=== PATIENT | male | born 1950 | race African-American/Black ===

== ENCOUNTER 2016-11-26 17:43 | Emergency (ER) | payer OTHER, MEDICARE ==
[2016-11-26 17:47] VITALS: BP 134/98; PULSE 64; TEMP 98.5; BMI 28.9
--- NOTE | 2016-11-26 18:47 | PDOC ---
History of Present Illness - General Chief Complaint: Eye Problem Stated Complaint: EYE INJURY Time Seen by Provider: 11/26/16 18:10 History Source: Patient Exam Limitations: No Limitations - History of Present Illness Initial Comments: 11/26/16 18:40 This is a 66yo man with PMH left corneal transplant who presents today with spontaneous redness to left sclera. He denies trauma, headaches, blurry vision, fevers or chills. He denies contact with anyone with similar symptoms. He denies FB sensation to eye. Pain- none Past History - Past Medical History Allergies/Adverse Reactions: Allergies Allergy/AdvReac Type Severity Reaction Status Date / Time No Known Allergies Allergy Verified 11/26/16 17:47 Home Medications: Ambulatory Orders Aspirin 81 mg PO DAILY 09/25/12 Atorvastatin Ca [Lipitor] 10 mg PO HS 09/25/12 Hydrochlorothiazide [Hctz -] 12.5 mg PO DAILY 09/25/12 Brimonidine Tartrate/Timolol [Combigan Eye Drops] 10 ml OP ASDIR 11/26/16 Lisinopril [Prinivil -] 40 mg PO DAILY 11/26/16 Verapamil HCl [Verapamil ER] 240 mg PO DAILY 11/26/16 HTN: Yes Hypercholesterolemia: Yes - Surgical History Appendectomy: Yes GI Surgery: Yes (hernia repair) - Psycho/Social/Smoking Cessation Hx Anxiety: No Suicidal Ideation: No Smoking Status: No Smoking History: Never smoked Number of Cigarettes Smoked Daily: 0 Information on smoking cessation initiated: No Hx Alcohol Use: No Drug/Substance Use Hx: No Substance Use Type: None Review of Systems - Review of Systems Able to Perform ROS?: Yes Is the patient limited Mozambican proficient: No Constitutional: No: Symptoms Reported HEENTM: Yes: See HPI Respiratory: No: Symptoms reported Cardiac (ROS): No: Symptoms Reported ABD/GI: No: Symptoms Reported : No: Symptoms Reported Musculoskeletal: No: Symptoms Reported Integumentary: No: Symptoms Reported Neurological: No: Symptoms reported *Physical Exam - Vital Signs Last Vital Signs Temp Pulse Resp BP Pulse Ox 98.5 F 64 17 134/98 98 11/26/16 17:45 11/26/16 17:45 11/26/16 17:45 11/26/16 17:45 11/26/16 17:45 - Physical Exam General Appearance: Yes: Appropriately Dressed. No: Apparent Distress HEENT: positive: EOMI, ASIA, Other (painless blood noted to the sclera). negative: Photophobia Neck: positive: Trachea midline, Supple. negative: Tender Respiratory/Chest: positive: Lungs Clear, Normal Breath Sounds. negative: Chest Tender, Respiratory Distress, Accessory Muscle Use Cardiovascular: positive: Regular Rhythm, Regular Rate, S1, S2. negative: Edema , JVD, Murmur Gastrointestinal/Abdominal: positive: Normal Bowel Sounds, Soft. negative: Tender, Organomegaly Musculoskeletal: positive: Normal Inspection. 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 He denies trauma, headaches, blurry vision, fevers or chills. He denies contact with anyone with similar symptoms. He denies FB sensation to eye. He wears a soft contact lens in his left eye and a hard contact lens in his right eye. No FB visualized. Fluorescein exam revealed no uptake. No FB visualized after fluorescein. No entrapment present. P: Subconjunctival hemorrhage - discharge *DC/Admit/Observation/Transfer Diagnosis at time of Disposition: Subconjunctival bleed Qualifiers: Laterality: left Qualified Code(s): H11.32 - Conjunctival hemorrhage, left eye - Discharge Dispostion Disposition: HOME Condition at time of disposition: Stable Admit: No - Referrals Referrals: Sukumar Hood MD [Primary Care Provider] - - Patient Instructions Additional Instructions: The blood is typically resorbed over one to two weeks, depending on the amount of blood. The amount of blood may seem to increase on the second day, but this typically represents redistribution and should not cause concern. Return to ER for any persistent or worsening symptoms including pain, visual changes or any other concern. Thank you for choosing us to provide your emergent medical needs. - Post Discharge Activity Work/School Note: Back to Work
== END 2016-11-26 18:54 | disposition home or self-care (01) ==
LOC: JERFT 17:43
DX: H11.32 Conjunctival hemorrhage, left eye (principal); Z94.7 Corneal transplant status; I10 Essential (primary) hypertension; E78.00 Pure hypercholesterolemia, unspecified
CPT/HCPCS: 99281-25

== ENCOUNTER 2016-12-09 09:34 | Emergency (ER) | payer OTHER, MEDICARE ==
[2016-12-09 09:44] VITALS: BP 111/79; PULSE 50; TEMP 98.3; BMI 28.9
--- NOTE | 2016-12-09 11:18 | PDOC ---
History of Present Illness - General Chief Complaint: Pain, Acute Stated Complaint: LT TOE PAIN Time Seen by Provider: 12/09/16 11:01 History Source: Patient Exam Limitations: No Limitations - History of Present Illness Initial Comments: 12/09/16 11:13 66 yr male with left second toe injury yesterday, pt states he bent it backwards playing with his grandson. 12/09/16 14:09 Occurred: reports: other (1 days ago ) Past History - Past Medical History Allergies/Adverse Reactions: Allergies Allergy/AdvReac Type Severity Reaction Status Date / Time No Known Allergies Allergy Verified 12/09/16 09:40 Home Medications: Ambulatory Orders Aspirin 81 mg PO DAILY 09/25/12 Atorvastatin Ca [Lipitor] 10 mg PO HS 09/25/12 Hydrochlorothiazide [Hctz -] 12.5 mg PO DAILY 09/25/12 Brimonidine Tartrate/Timolol [Combigan Eye Drops] 10 ml OP ASDIR 11/26/16 Lisinopril [Prinivil -] 40 mg PO DAILY 11/26/16 Verapamil HCl [Verapamil ER] 240 mg PO DAILY 11/26/16 HTN: Yes Hypercholesterolemia: Yes - Surgical History Appendectomy: Yes GI Surgery: Yes (ABDOMINAL hernia repair) - Immunization History Immunization Up to Date: Yes - Psycho/Social/Smoking Cessation Hx Anxiety: No Suicidal Ideation: No Smoking Status: No Smoking History: Never smoked Have you smoked in the past 12 months: No Number of Cigarettes Smoked Daily: 0 Information on smoking cessation initiated: No Hx Alcohol Use: No Drug/Substance Use Hx: No Substance Use Type: Alcohol *Physical Exam - Vital Signs Last Vital Signs Temp Pulse Resp BP Pulse Ox 98.3 F 50 L 15 111/79 99 12/09/16 09:40 12/09/16 09:40 12/09/16 09:40 12/09/16 09:40 12/09/16 09:40 - Physical Exam General Appearance: Yes: Nourished, Appropriately Dressed HEENT: positive: EOMI, ASIA Neck: negative: Tender Respiratory/Chest: positive: Lungs Clear, Normal Breath Sounds. 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 12/09/16 14:11 refer to podiatry as discussed pt agrees with plan all questions asked and answered *DC/Admit/Observation/Transfer Diagnosis at time of Disposition: Strain of toe of left foot Qualifiers: Encounter type: initial encounter Qualified Code(s): S96.912A - Strain of unspecified muscle and tendon at ankle and foot level, left foot, initial encounter - Discharge Dispostion Disposition: HOME Condition at time of disposition: Good - Referrals Referrals: Sukumar Hood MD [Primary Care Provider] - Jose F Odell MD [Staff Physician] - - Patient Instructions Additional Instructions: follow with the medication specialist for follow up if symptoms worsen or persist take motrin for pain as needed (advil) keep celestina taped for one week - Post Discharge Activity Work/School Note: Back to Work
== END 2016-12-09 11:32 | disposition home or self-care (01) ==
LOC: JERFT 09:34
DX: S93.515A Sprain of interphalangeal joint of left lesser toe(s), initial encounter (principal); X50.1XXA Overexertion from prolonged static or awkward postures, initial encounter; Y93.89 Activity, other specified; Y92.038 Other place in apartment as the place of occurrence of the external cause; Y99.8 Other external cause status; I10 Essential (primary) hypertension; E78.00 Pure hypercholesterolemia, unspecified
CPT/HCPCS: 99281-25

== ENCOUNTER 2017-01-17 15:31 | Emergency (ER) | payer OTHER, MEDICARE ==
[2017-01-17 15:37] VITALS: BMI 27.3
[2017-01-17] MEDS ORDERED: FLUORESCEIN NA 1 EA STRIP ONE (17:39)
--- NOTE | 2017-01-17 18:44 | PDOC ---
*Physical Exam - Vital Signs Last Vital Signs Temp Pulse Resp BP Pulse Ox 98.5 F 57 L 16 140/76 99 01/17/17 15:35 01/17/17 15:35 01/17/17 15:35 01/17/17 15:35 01/17/17 15:35 <Oneil Salcedo - Last Filed: 01/17/17 18:39> - Vital Signs Last Vital Signs Temp Pulse Resp BP Pulse Ox 98.5 F 57 L 16 140/76 99 01/17/17 15:35 01/17/17 15:35 01/17/17 15:35 01/17/17 15:35 01/17/17 15:35 <Sandy Henderson - Last Filed: 01/19/17 01:41> ED Treatment Course - RADIOLOGY Radiology Studies Ordered: Category Date Time Status ORBIT CT W/WO CONTRAST [CT] Stat CT Scan 01/17/17 18:15 Ordered <Oneil Salcedo - Last Filed: 01/17/17 18:39> - LABORATORY CBC & Chemistry Diagram: 01/17/17 20:37 01/17/17 20:37 - Medications Given in the ED: ED Medications Discontinued Medications Generic Name Dose Route Start Last Admin Trade Name Freq PRN Reason Stop Dose Admin Moxifloxacin HCl 1 drop 01/17/17 18:15 01/17/17 20:36 Vigamox 0.5% Eye Drops - OS 01/17/17 18:46 1 drop Q15M FOSTER Administration <Sandy Henderson - Last Filed: 01/19/17 01:41> Medical Decision Making - Medical Decision Making 01/17/17 18:39 I have assisted in the care of the patient to the extent of making a phone call to Dr. Alvaro Aguilar's office/associate and ordering the appropriate imaging and antibiotics. 01/17/17 18:41 I have discussed the patient's care with his ophthamology team, an associate of Dr. Alvaro Aguilar at [phone]. She suggests getting an orbital CT. In the meantime, he should be getting topical abx, moxifloxacin. If there is orbital involvement, he must be admitted for IV abx. If there is no orbital involvment, she wants oral abx in addition to the topical abx and a phone call tomorrow to her office with an appointment made the same day. The patient should be instructed to call the physician tomorrow with his status (admitted vs not with antibiotics). 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
[2017-01-17] MEDS: MOXIFLOXACIN HCL 0.5% OPHTHALMIC 3 ML BOTTLE OS SCH ×3 (20:10→20:36)
[2017-01-17] MEDS ORDERED: VANCOMYCIN 1,000 MG in DEXTROSE 5%-WATER - 250 ML IVPB STA (20:33)
[2017-01-17] MEDS ORDERED: CEFTRIAXONE 2,000 MG in DEXTROSE 5%-WATER - 50 ML IVPB STA (20:34)
[2017-01-17] MEDS ORDERED: CEFTRIAXONE 100 ML ONE (20:50)
--- NOTE | 2017-01-17 20:55 | PDOC ---
History of Present Illness - General History Source: Patient Exam Limitations: No Limitations - History of Present Illness Initial Comments: 01/17/17 21:54 The patient is a 66 year old male, with a significant past medical history of L corneal transplant, HTN, HLD who presents to the emergency department with L eye pain and swelling since last night. Patient states his L eye began profusely tearing with pain. Patient reports eye pain is 5/10 in severity with associated decreased vision and photophobia. Patient denies any injury to L eye , any discharge. <Priscilla aDugherty - Last Filed: 01/17/17 23:19> <Sandy Henderson - Last Filed: 01/17/17 23:46> - General Chief Complaint: Eye Problem Stated Complaint: EYE PAIN Time Seen by Provider: 01/17/17 17:35 Past History <Priscilla Daugherty - Last Filed: 01/17/17 23:19> - Past Medical History HTN: Yes Hypercholesterolemia: Yes - Surgical History Appendectomy: Yes GI Surgery: Yes (ABDOMINAL hernia repair) - Immunization History Immunization Up to Date: Yes - Suicide/Smoking/Psychosocial Hx Smoking Status: No Smoking History: Never smoked Have you smoked in the past 12 months: No Number of Cigarettes Smoked Daily: 0 Information on smoking cessation initiated: No Hx Alcohol Use: Yes (GLASS OF WINE A DAY) Drug/Substance Use Hx: No Substance Use Type: Alcohol <Sandy Henderson - Last Filed: 01/17/17 23:46> - Past Medical History Allergies/Adverse Reactions: Allergies Allergy/AdvReac Type Severity Reaction Status Date / Time No Known Allergies Allergy Verified 01/17/17 15:37 Home Medications: Ambulatory Orders Aspirin 81 mg PO DAILY 09/25/12 Atorvastatin Ca [Lipitor] 10 mg PO HS 09/25/12 Hydrochlorothiazide [Hctz -] 12.5 mg PO DAILY 09/25/12 Brimonidine Tartrate/Timolol [Combigan Eye Drops] 10 ml OP ASDIR 11/26/16 Lisinopril [Prinivil -] 40 mg PO DAILY 11/26/16 Verapamil HCl [Verapamil ER] 240 mg PO DAILY 11/26/16 Review of Systems - Review of Systems Able to Perform ROS?: Yes Comments:: 01/17/17 21:54 CONSTITUTIONAL: Absent: fever, chills, diaphoresis, generalized weakness, malaise, loss of appetite HEENT: + L eye pain Absent: rhinorrhea, nasal congestion, throat pain, throat swelling, difficulty swallowing, mouth swelling, ear pain, , visual Changes CARDIOVASCULAR: Absent: chest pain, syncope, palpitations, irregular heart rate, lightheadedness , peripheral edema RESPIRATORY: Absent: cough, shortness of breath, dyspnea with exertion, orthopnea, wheezing, stridor, hemoptysis GASTROINTESTINAL: Absent: abdominal pain, abdominal distension, nausea, vomiting, diarrhea, constipation, melena, hematochezia GENITOURINARY: Absent: dysuria, frequency, urgency, hesitancy, hematuria, flank pain, genital pain MUSCULOSKELETAL: Absent: myalgia, arthralgia, joint swelling SKIN: Absent: rash, itching, pallor HEMATOLOGIC/IMMUNOLOGIC: Absent: easy bleeding, easy bruising, lymphadenopathy, frequent infections ENDOCRINE: Absent: unexplained weight gain, unexplained weight loss, heat intolerance, cold intolerance NEUROLOGIC: Absent: headache, focal weakness or paresthesias, dizziness, unsteady gait, seizure, mental status changes, bladder or bowel incontinence PSYCHIATRIC: Absent: anxiety, depression, suicidal or homicidal ideation, hallucinations. <Priscilla Daugherty - Last Filed: 01/17/17 23:19> *Physical Exam - Vital Signs Last Vital Signs Temp Pulse Resp BP Pulse Ox 98.5 F 57 L 16 140/76 98 01/17/17 15:35 01/17/17 15:35 01/17/17 15:35 01/17/17 15:35 01/17/17 21:07 - Physical Exam Comments: GENERAL: Well developed, well nourished. Awake and alert. No acute distress. HEENT: +Unaffected R eye. L eye: visual acuity is 20/200 in affected L eye. Injected conjunctiva. No discrete discharge on the eye. Some L eyelid swelling, No stye appreciated. Normocephalic, atraumatic. PERRLA, EOMI. Sclera are non- icteric. Moist mucous membranes. Oropharynx is clear. NECK: Supple. Full ROM. No JVD. Carotid pulses 2+ and symmetric, without bruits. No thyromegaly. No lymphadenopathy. CARDIOVASCULAR: Regular rate and rhythm. No murmurs, rubs, or gallops. Distal pulses are 2+ and symmetric. PULMONARY: No evidence of respiratory distress. Lungs clear to auscultation bilaterally. No wheezing, rales or rhonchi. ABDOMINAL: Soft. Non-tender. Non-distended. No rebound or guarding. No organomegaly. Normoactive bowel sounds. MUSCULOSKELETAL Normal range of motion at all joints. No bony deformities or tenderness. No CVA tenderness. EXTREMITIES: No cyanosis. No clubbing. No edema. No calf tenderness. SKIN: Warm and dry. Normal capillary refill. No rashes. No jaundice. NEUROLOGICAL: Alert, awake, appropriate. Cranial nerves 2-12 intact. No deficits to light touch and temperature in face, upper extremities and lower extremities. No motor deficits in the in face, upper extremities and lower extremities. Normoreflexic in the upper and lower extremities. Normal speech. Toes are down-going bilaterally. Gait is normal without ataxia. PSYCHIATRIC: Cooperative. Good eye contact. Appropriate mood and affect. <Priscilla Daugherty - Last Filed: 01/17/17 23:19> - Vital Signs Last Vital Signs Temp Pulse Resp BP Pulse Ox 98.5 F 57 L 16 140/76 99 01/17/17 15:35 01/17/17 15:35 01/17/17 15:35 01/17/17 15:35 01/17/17 15:35 <Sandy Henderson - Last Filed: 01/17/17 23:46> ED Treatment Course - LABORATORY CBC & Chemistry Diagram: 01/17/17 20:37 01/17/17 20:37 - ADDITIONAL ORDERS Additional order review: Laboratory Results 01/17/17 20:37 Sodium 139 Potassium 4.2 Chloride 104 Carbon Dioxide 27 Anion Gap 8 BUN 14 D Creatinine 0.9 Creat Clearance w eGFR > 60 Random Glucose 85 Calcium 8.4 L Total Bilirubin 0.7 D AST 20 D ALT 29 D Alkaline Phosphatase 43 L D Total Protein 6.8 Albumin 3.7 01/17/17 20:37 RBC 4.93 MCV 89.5 MCHC 33.4 RDW 14.7 MPV 8.8 Neutrophils % 50.6 Lymphocytes % 38.6 D Monocytes % 9.3 Eosinophils % 0.5 D Basophils % 1.0 - Medications Given in the ED: ED Medications Discontinued Medications Generic Name Dose Route Start Last Admin Trade Name Freq PRN Reason Stop Dose Admin Vancomycin HCl 1,000 mg/ 250 mls @ 250 mls/hr 01/17/17 20:33 01/17/17 21:41 Dextrose IVPB 01/17/17 21:32 250 mls/hr ONCE STA Administration Protocol Ceftriaxone Sodium 2,000 mg/ 50 mls @ 100 mls/hr 01/17/17 20:34 01/17/17 21:00 Dextrose IVPB 01/17/17 21:03 100 mls/hr ONCE STA Administration Moxifloxacin HCl 1 drop 01/17/17 18:15 01/17/17 20:36 Vigamox 0.5% Eye Drops - OS 01/17/17 18:46 1 drop Q15M FOSTER Administration <Priscilla Daugherty - Last Filed: 01/17/17 23:19> - LABORATORY CBC & Chemistry Diagram: 01/17/17 20:37 01/17/17 20:37 - Medications Given in the ED: ED Medications Discontinued Medications Generic Name Dose Route Start Last Admin Trade Name Freq PRN Reason Stop Dose Admin Moxifloxacin HCl 1 drop 01/17/17 18:15 01/17/17 20:36 Vigamox 0.5% Eye Drops - OS 01/17/17 18:46 1 drop Q15M FOSTER Administration <Sandy Henderson - Last Filed: 01/17/17 23:46> Medical Decision Making - Medical Decision Making 01/17/17 22:[address] Cohen for Optho consult. Awaiting call back. 01/17/17 22:44 Dr. Cohen returned the page and the patients case was discussed. 01/17/17 23:19 CT Orbit w/o Contrast Impression: 1. Left preseptal soft tissue swelling/thickening and edema may be infectious or inflammatory. These findings are compatible with the provided clinical history of cellulitis. No definite post septal extension, within the limitations of no IV contrast. 2. Opacification of the left frontal sinus and left anterior ethmoid air cells and occluded left frontal recess. Hyperdense contents within the left frontal sinus may be chronic inspissated secretions. Reported By: Maria Eugenia Rowe MD 01/17/171925 <Priscilla Daugherty - Last Filed: 01/17/17 23:19> - Medical Decision Making 01/17/17 23:00 66-year-old male presented with an injected left conjunctiva and swollen eyelid. He complains of photophobia. All his symptoms started this morning. He does wear a soft contact in the left eye, but removed as soon as his L eye started to be uncomfortable. He complains of some decreased vision in because it is hazy when he looks to that eye. EYE EXAM -no discrete discharge -no fever labs reviewed and the cbc is unremarakble Visual acuity in that left eye was 20/200 Examining his eye fluorscein dye was placed and there was just a very minimal uptake at 6 o'clock position an area of 1-2 mm 01/17/17 23:11 The case was discussed with several trauma counsellor one being the physician the patient's primary trauma counsellor, Dr. Alvaro Moran with whom he has appointment tomorrow and also the on-call trauma counsellor, Dr. Doni Cohen [phone] CAT scan was reviewed and there was some concern for inflammation, possibly infection in the left septal soft tissue and so therefore patient was given a dose of IV antibiotics. Also, both trauma counsellor recommended either moxifloxacin or besifloxacin eyedrops to be given every 2 hours into the left eye I called [facility] and they do carry moxifloxacin eyedrops 01/17/17 23:14 <Sandy Henderson - Last Filed: 01/17/17 23:46> *DC/Admit/Observation/Transfer - Attestations Scribe Attestion: 01/17/17 21:54 Documentation prepared by Priscilla Daugherty, acting as medical insurance claims specialist for Sandy Henderson MD <Priscilla Daugherty - Last Filed: 01/17/17 23:19> <Sandy Henderson - Last Filed: 01/17/17 23:46> Diagnosis at time of Disposition: Pain of left eye - Discharge Dispostion Disposition: HOME Condition at time of disposition: Stable - Referrals Referrals: Sukumar Hood MD [Primary Care Provider] - - Patient Instructions Printed Discharge Instructions: DI for Eye Pain, DI for Conjunctivitis Additional Instructions: it is very important to keep your appointment with your trauma counsellor tomorrow Place the antibiotic eyedrops in your left eye every 2 hours
[2017-01-17 21:04] LABS: EOSINOPHIL 0.5 % (0-4.5); MCH 29.9 pg (25.7-33.7); MCHC 33.4 g/dl (32.0-35.9); MEAN CELL VOLUME 89.5 fl (80-96); MEAN PLT VOLUME 8.8 fl (7.5-11.1); NEUTROPHILS 50.6 % (42.8-82.8); PLATELET COUNT 177 K/MM3 (134-434); RDW 14.7 % (11.9-15.9); WHITE BLOOD COUNT 5.4 K/mm3 (4.0-10.0)
[2017-01-17] MEDS ORDERED: VANCOMYCIN 1 GRAM (PRE-DOCKED) 250 ML IVPB ONE (21:40)
[2017-01-17 21:46] LABS: ALBUMIN 3.7 g/dl (3.4-5.0); ANION GAP 8 (8-16); CALCIUM 8.4 mg/dL (8.5-10.1); CO2 27 mmol/L (21-32); CREATININE 0.9 mg/dL (0.7-1.3); GLUCOSE,RANDOM 85 mg/dL (74-106); SGPT/ALT 29 U/L (12-78)
[2017-01-17 21:48] LABS: ALK PHOS 43 U/L (45-117); BILIRUBIN,TOTAL 0.7 mg/dL (0.2-1.0); TOT PROT 6.8 g/dl (6.4-8.2)
[2017-01-17 21:51] LABS: SGOT/AST 20 U/L (15-37)
[2017-01-18 00:22] VITALS: BP 131/72; PULSE 60; TEMP 98.9
== END 2017-01-18 00:17 | disposition home or self-care (01) ==
LOC: JER 15:31 → JERFT 15:31 → JER 01-18 00:17
DX: L03.213 Periorbital cellulitis (principal); I10 Essential (primary) hypertension; E78.00 Pure hypercholesterolemia, unspecified; Z94.7 Corneal transplant status
CPT/HCPCS: 36415; 70480-TC; 80053; 85025; 96365; 96367; 99285-25

== ENCOUNTER 2018-06-21 06:35 | Emergency (ER) | payer MEDICARE, OTHER ==
[2018-06-21 07:30] VITALS: BP 113/71; PULSE 56; TEMP 98.5; BMI 28.5
--- NOTE | 2018-06-21 07:48 | PDOC ---
History of Present Illness - General History Source: Patient Exam Limitations: No Limitations - History of Present Illness Initial Comments: 06/21/18 08:30 The patient is a 67 year old male, with a significant past medical history of left corneal transplant (mild chronic photophobia), hypertension, hyperlipidemia , who presents to the emergency department with, 3 hours of a constant, throbbing, frontal headache ranked a 7/10. The patient endorses mild blurred vision at the initial onset of his headache, which has since resolved since taking 1 extra strength Tylenol. He denies similar episodes in the past, prompting his arrival to the emergency department. He denies any recent fevers , lightheadedness, or dizziness. He denies any recent nausea, vomit, diarrhea or constipation. He denies any recent chest pain, palpitations, or shortness of breath. He denies any recent dysuria, frequency, urgency or hematuria. Allergies: NKDA Past surgical history: None reported. Social History: Social EtOH. Nonsmoker. Denies recreational drug use. Primary Care Physician: Dr. Rojas <Harish Schneider - Last Filed: 06/21/18 08:30> <Mat Garcia - Last Filed: 06/21/18 09:46> - General Chief Complaint: Headache Stated Complaint: HEADACHE Time Seen by Provider: 06/21/18 07:48 Past History <Harish Schneider - Last Filed: 06/21/18 08:30> - Past Medical History COPD: No HTN: Yes Hypercholesterolemia: Yes - Surgical History Appendectomy: Yes GI Surgery: Yes (ABDOMINAL hernia repair) - Immunization History Immunization Up to Date: Yes - Suicide/Smoking/Psychosocial Hx Smoking Status: No Smoking History: Never smoked Have you smoked in the past 12 months: No Number of Cigarettes Smoked Daily: 0 Hx Alcohol Use: Yes (GLASS OF WINE A DAY) Drug/Substance Use Hx: No Substance Use Type: Alcohol <Mat Garcia - Last Filed: 06/21/18 09:46> - Past Medical History Allergies/Adverse Reactions: Allergies Allergy/AdvReac Type Severity Reaction Status Date / Time No Known Allergies Allergy Verified 06/21/18 07:27 Home Medications: Ambulatory Orders Aspirin 81 mg PO DAILY 09/25/12 Atorvastatin Ca [Lipitor] 10 mg PO HS 09/25/12 Hydrochlorothiazide [Hctz -] 25 mg PO DAILY 09/25/12 Brimonidine Tartrate/Timolol [Combigan Eye Drops] 10 ml OP ASDIR 11/26/16 Lisinopril [Prinivil -] 20 mg PO DAILY 11/26/16 Verapamil HCl [Verapamil ER] 240 mg PO DAILY 11/26/16 Moxifloxacin HCl [Vigamox 0.5% -] 1 drop OS Q2H #1 vial 01/17/17 Review of Systems - Review of Systems Able to Perform ROS?: Yes Comments:: 06/21/18 08:30 CONSTITUTIONAL: No fever, no chills, no fatigue EYES: No visual changes ENT: No ear pain, no sore throat CARDIOVASCULAR: No chest pain, no palpitations RESPIRATORY: No cough, no SOB GI: No abdominal pain, no nausea, no vomiting, no constipation, no diarrhea GENITOURINARY: No dysuria, no frequency, no hematuria MUSKULOSKELETAL: No back pain, no joint pain, no myalgias SKIN: No rash NEURO: +Headache. All Other Systems: Reviewed and Negative <Harish Schneider - Last Filed: 06/21/18 08:30> *Physical Exam - Vital Signs Last Vital Signs Temp Pulse Resp BP Pulse Ox 98.5 F 56 L 18 113/71 99 06/21/18 07:27 06/21/18 07:27 06/21/18 07:27 06/21/18 07:27 06/21/18 07:27 - Physical Exam Comments: 06/21/18 08:31 CONSTITUTIONAL: Well-appearing; well-nourished; in no apparent distress HEAD: Normocephalic; atraumatic EYES: PERRL; EOM intact ENMT: External appears normal; normal oropharynx NECK: Supple; non-tender; no cervical lymphadenopathy CARD: Normal S1, S2; no murmurs, rubs, or gallops RESP: Normal chest excursion with respiration; breath sounds clear and equal bilaterally; no wheezes, rhonchi, or rales ABD: Soft, non-distended; non-tender; no palpable organomegaly, no palpable hernias EXT: Normal ROM in all four extremities; non-tender to palpation; distal pulses intact SKIN: Warm, dry, no rash NEURO: Alert, awake, appropriate. Cranial nerves 2-12 intact. No deficits to light touch and temperature in face, upper extremities and lower extremities. No motor deficits in the in face, upper extremities and lower extremities. No pronator drift. Normoreflexic in the upper and lower extremities. Normal speech. Toes are down-going bilaterally. No dysmetria. No dysdiadochokinesis. No skew deviation. No abnormal nystagmus. <Harish Schneider - Last Filed: 06/21/18 08:30> - Vital Signs Last Vital Signs Temp Pulse Resp BP Pulse Ox 98.5 F 56 L 18 113/71 99 06/21/18 07:27 06/21/18 07:27 06/21/18 07:27 06/21/18 07:27 06/21/18 07:27 <Mat Garcia - Last Filed: 06/21/18 09:46> Medical Decision Making - Medical Decision Making 06/21/18 09:18 Patient is 67-year-old male with history of hypercholesterolemia and hypertension who presents to the ER with atraumatic throbbing frontal headache associated with mild photophobia. Neurological evaluation reveals no focal deficits. Cranial nerves are intact. Extraocular movements are normal and intact bilaterally. There is tenderness to percussion of bilateral frontal sinuses. Patient is refused any parenteral pain meds, we'll administer set amount of thin will obtain CT of head to rule out intracranial hemorrhage/ frontal sinusitis. I do not suspect subarachnoid hemorrhage/meningitis or CVA at this time. Will reassess. 06/21/18 09:44 Patient reassessed. Patient is refusing pain medication, blood draw and CT of head. Patient states that he was only concerned about his blood pressure and since it is normal, he does not wish any other interventions. I informed the patient that his headache may be related to serious intracranial or sinus pathology and his life or health may be in danger but he is refusing any further evaluations at this time. He will sign out AMA and will follow-up with his primary care physician. <Mat Garcia - Last Filed: 06/21/18 09:46> *DC/Admit/Observation/Transfer - Attestations Scribe Attestion: 06/21/18 08:32 Documentation prepared by Harish Schneider, acting as medical assistant secretary for Mat Garcia MD. <Harish Schneider - Last Filed: 06/21/18 08:30> <Mat Garcia - Last Filed: 06/21/18 09:46> Diagnosis at time of Disposition: Headache Qualifiers: Headache type: unspecified Headache chronicity pattern: acute headache Intractability: not intractable Qualified Code(s): R51 - Headache - Discharge Dispostion Disposition: AGAINST MEDICAL ADVICE Condition at time of disposition: Fair - Referrals Referrals: Sukumar Hood MD [Primary Care Provider] - - Patient Instructions Printed Discharge Instructions: DI for Headache Additional Instructions: Your leaving AGAINST MEDICAL ADVICE. You headache may be related to serious brain bleed or serious sinus infection which puts her life and health at risk. Follow-up with your primary care physician. Return immediately for recurrent or worsening symptoms. - Post Discharge Activity Forms/Work/School Notes: Back to Work
[2018-06-21] MEDS ORDERED: ACETAMINOPHEN 500 MG TABLET (FP) PO ONE (08:02)
== END 2018-06-21 10:00 | disposition left against medical advice (07) ==
LOC: SUPCPDRO 06:35 → JER 06:35
DX: R51 Headache (principal); E78.00 Pure hypercholesterolemia, unspecified; I10 Essential (primary) hypertension
CPT/HCPCS: 99281-25

== ENCOUNTER 2019-02-04 08:15 | Emergency (ER) | payer OTHER ==
[2019-02-04 08:20] VITALS: BP 122/74; PULSE 63; TEMP 98.7; BMI 28.8
--- NOTE | 2019-02-04 08:51 | PDOC ---
History of Present Illness - General Chief Complaint: Eye Problem Stated Complaint: EYE PROBLEM Time Seen by Provider: 02/04/19 08:39 History Source: Patient Exam Limitations: No Limitations - History of Present Illness Initial Comments: 02/04/19 08:46 Patient came to emergency department with complaints of visual changes in his left eye. States had corneal transplant 7 years ago for corneal irregularities and reports he has had intermittent blurred vision that spontaneously resolves. Denies recent trauma, denies any drainage or redness to the eye. States this morning when he woke up his vision was quite blurry which prompted him to come to the emergency department for evaluation. Is this a multiple visit Asthma Patient?: No Timing/Duration: unsure Associated Symptoms: reports: denies symptoms Past History - Travel Traveled outside of the country in the last 30 days: No Close contact w/someone who was outside of country & ill: No - Past Medical History Allergies/Adverse Reactions: Allergies Allergy/AdvReac Type Severity Reaction Status Date / Time No Known Allergies Allergy Verified 06/21/18 07:27 Home Medications: Ambulatory Orders Aspirin 81 mg PO DAILY 09/25/12 Atorvastatin Ca [Lipitor] 10 mg PO HS 09/25/12 Hydrochlorothiazide [Hctz -] 25 mg PO DAILY 09/25/12 Brimonidine Tartrate/Timolol [Combigan Eye Drops] 10 ml OP ASDIR 11/26/16 Lisinopril [Prinivil -] 20 mg PO DAILY 11/26/16 Verapamil HCl [Verapamil ER] 240 mg PO DAILY 11/26/16 Moxifloxacin HCl [Vigamox 0.5% -] 1 drop OS Q2H #1 vial 01/17/17 COPD: No HTN: Yes Hypercholesterolemia: Yes - Surgical History Appendectomy: Yes GI Surgery: Yes (ABDOMINAL hernia repair) - Immunization History Immunization Up to Date: Yes - Psycho Social/Smoking Cessation Hx Smoking Status: No Smoking History: Never smoked Have you smoked in the past 12 months: No Number of Cigarettes Smoked Daily: 0 Hx Alcohol Use: Yes (GLASS OF WINE A DAY) Drug/Substance Use Hx: No Substance Use Type: Alcohol Review of Systems - Review of Systems Able to Perform ROS?: Yes Is the patient limited Uzbek proficient: Yes Constitutional: Yes: Symptoms Reported, See HPI. No: Chills, Fever, Loss of Appetite, Malaise HEENTM: Yes: Symptoms Reported, See HPI, Blurred Vision, Recent change in vision. No: Tearing, Double Vision, Cataracts Respiratory: No: Symptoms reported Musculoskeletal: No: Symptoms Reported All Other Systems: Reviewed and Negative *Physical Exam - Vital Signs Last Vital Signs Temp Pulse Resp BP Pulse Ox 98.7 F 63 18 122/74 99 02/04/19 08:16 02/04/19 08:16 02/04/19 08:16 02/04/19 08:16 02/04/19 08:16 - Physical Exam General Appearance: Yes: Nourished, Appropriately Dressed, Mild Distress. No: Apparent Distress HEENT: positive: ASIA, Normal ENT Inspection, Normal Voice, TMs Normal, Pharynx Normal, Other (Eyes without injection, periorbital swelling, drainage, and visual acuity appears to be impaired to the left side. Patient wears glasses normally and needed glasses to read from left eye. States visual acuity is intermittent blurred and then returns.). negative: Nasal Congestion, Rhinorrhea Neck: positive: Supple. negative: Tender, Lymphadenopathy (R), Lymphadenopathy (L) Respiratory/Chest: positive: Lungs Clear, Normal Breath Sounds. negative: Chest Tender Cardiovascular: positive: Regular Rhythm Gastrointestinal/Abdominal: positive: Soft. negative: Tender, Guarding, Rebound Extremity: positive: Normal Capillary Refill, Normal Inspection Integumentary: positive: Normal Color, Dry, Warm, Pale Neurologic: positive: knitter helper II-XII NML intact, Fully Oriented, Alert, Normal Mood/ Affect, Normal Response, Motor Strength 5/5 Medical Decision Making - Medical Decision Making 02/04/19 10:05 Dr. Jules return phone call, given update as to patient's visit and recommendations for lubricating drops and follow-up. Dr. Jules stated he would be in touch with the patient. Discharge - Discharge Information Problems reviewed: No Clinical Impression/Diagnosis: Eyestrain, left Condition: Stable Disposition: HOME - Admission No - Follow up/Referral Referrals: Sukumar Hood MD [Primary Care Provider] - - Patient Discharge Instructions Patient Printed Discharge Instructions: DI for Eye Pain Additional Instructions: Dr. Amando Julse, See surgical supervisor as scheduled. Consider using lubricating drops as needed for the next few days until scheduled appointment. If symptoms worsen follow-up in larger emergency department with probable ophthalmology residents including [facility], [facility], [facility] , or [facility]. - Post Discharge Activity Work/Back to School Note: Back to Work
== END 2019-02-04 09:48 | disposition home or self-care (01) ==
LOC: JERFT 08:15
DX: H53.19 Other subjective visual disturbances (principal); I10 Essential (primary) hypertension; E78.00 Pure hypercholesterolemia, unspecified; Z79.899 Other long term (current) drug therapy
CPT/HCPCS: 99281-25

== ENCOUNTER 2020-02-29 06:10 | Day surgery (SDC) | payer OTHER ==
[2020-02-27 17:08] VITALS: BMI 27.4
[2020-02-29] MEDS ORDERED: BACITRACIN 15 GM TUBE TOPICAL OINTMENT ONE (11:56)
[2020-02-29] MEDS ORDERED: MIDAZOLAM HCL 2 MG/2 ML SINGLE DOSE VIAL ONE ×4 (12:59→14:06)
[2020-02-29] MEDS ORDERED: ceFAZolin SODIUM 1 GM VIAL IVPB ONE (13:00)
[2020-02-29] MEDS ORDERED: EPHEDRINE SULFATE/0.9% NACL/PF 50 MG/10 ML SYRINGE NR ONE (13:35)
[2020-02-29] MEDS ORDERED: ONDANSETRON 4 MG/2 ML VIAL IVPUSH PRN (14:41)
[2020-02-29] MEDS ORDERED: oxyCODONE HCL 5 MG TABLET PO PRN (14:41)
[2020-02-29] MEDS ORDERED: PROMETHAZINE HCL 25 MG/1 ML VIAL IVPB PRN (14:41)
[2020-02-29 18:32] VITALS: TEMP 97.5
[2020-02-29 19:33] VITALS: BP 101/60; PULSE 59
== END 2020-02-29 19:10 | disposition home or self-care (01) ==
LOC: JASU-SURG 06:10
PROVIDERS: ATTEND Urology
PROC: 0V503ZZ Destruction of Prostate, Percutaneous Approach (ICD-10-PCS; principal; 2020-02-29 13:00)
DX: C61 Malignant neoplasm of prostate (principal)
CPT/HCPCS: 55873; C2618; 94760

== ENCOUNTER 2020-06-27 04:45 | Day surgery (SDC) | payer OTHER ==
[2020-06-25 17:04] VITALS: BMI 29.1
[2020-06-27 09:34] VITALS: TEMP 97.8
[2020-06-27 10:53] VITALS: BP 112/64; PULSE 68
== END 2020-06-27 10:53 | disposition home or self-care (01) ==
LOC: JASU-ENDO 04:45
PROVIDERS: ATTEND Internal Medicine Gastroenterology
PROC: 0DBL8ZX Excision of Transverse Colon, Via Natural or Artificial Opening Endoscopic, Diagnostic (ICD-10-PCS; 2020-06-27)
PROC: 0DBK8ZX Excision of Ascending Colon, Via Natural or Artificial Opening Endoscopic, Diagnostic (ICD-10-PCS; principal; 2020-06-27 09:00)
DX: Z12.11 Encounter for screening for malignant neoplasm of colon (principal); D12.2 Benign neoplasm of ascending colon; D12.3 Benign neoplasm of transverse colon; K64.8 Other hemorrhoids; K59.89 Other specified functional intestinal disorders
CPT/HCPCS: 88305-TC

== ENCOUNTER 2021-06-17 06:45 | Day surgery (SDC) | payer OTHER ==
[2021-06-12 10:58] VITALS: BMI 27.3
[2021-06-17] MEDS ORDERED: BUPIVACAINE HCL/PF 0.25% (2.5MG/ML) 10 ML VIAL ONE (07:37)
[2021-06-17] MEDS ORDERED: LIDOCAINE HCL 2% (20ML MULTI-DOSE VIAL) ONE (07:37)
[2021-06-17] MEDS ORDERED: MIDAZOLAM HCL 2 MG/2 ML SINGLE DOSE VIAL ONE (07:42)
[2021-06-17] MEDS ORDERED: SUCCINYLCHOLINE CHLORIDE 200 MG/10 ML SYRINGE ONE (07:42)
[2021-06-17] MEDS ORDERED: PROPOFOL 20 ML ONE ×2 (07:42)
[2021-06-17] MEDS ORDERED: KETOROLAC TROMETHAMINE 30 MG/1 ML VIAL ONE (08:12)
[2021-06-17] MEDS ORDERED: LIDOCAINE HCL 2% JELLY (5 ML/TUBE) ONE (08:12)
[2021-06-17] MEDS ORDERED: ONDANSETRON 4 MG/2 ML VIAL ONE (08:12)
[2021-06-17] MEDS ORDERED: LIDOCAINE HCL/PF 2% SDV 5ML VIAL ONE (08:12)
[2021-06-17] MEDS ORDERED: DEXAMETHASONE SOD PHOSPHATE 4 MG/1 ML VIAL ONE (08:12)
[2021-06-17] MEDS ORDERED: GLYCOPYRROLATE 0.2 MG/1 ML VIAL ONE (08:15)
[2021-06-17] MEDS ORDERED: GUM MASTIC/STORAX/MSAL/ALCOHOL 1 DRP DROPSBTL MC ONE (08:23)
[2021-06-17] MEDS ORDERED: BUPIVACAINE HCL/PF 0.25% (2.5MG/ML) 10 ML VIAL IJ ONE (08:28)
[2021-06-17] MEDS ORDERED: ONDANSETRON 4 MG/2 ML VIAL IVPUSH PRN (08:40)
[2021-06-17] MEDS ORDERED: ACETAMINOPHEN 325 MG TABLET (FP) PO PRN (08:40)
[2021-06-17] MEDS ORDERED: oxyCODONE HCL 5 MG TABLET PO PRN (08:40)
[2021-06-17 09:35] VITALS: TEMP 97.9
[2021-06-17 10:06] VITALS: BP 96/48; PULSE 48
== END 2021-06-17 10:34 | disposition home or self-care (01) ==
LOC: FASU 06:45
PROVIDERS: ATTEND Orthopaedic Surgery Hand Surgery
PROC: 01N54ZZ Release Median Nerve, Percutaneous Endoscopic Approach (ICD-10-PCS; principal; 2021-06-17 08:00)
DX: G56.02 Carpal tunnel syndrome, left upper limb (principal)
CPT/HCPCS: 94760

== ENCOUNTER 2021-08-12 07:39 | Day surgery (SDC) | payer OTHER ==
[2021-08-05 12:07] VITALS: BMI 27.3
[2021-08-12] MEDS ORDERED: ONDANSETRON 4 MG/2 ML VIAL ONE (08:52)
[2021-08-12] MEDS ORDERED: LIDOCAINE HCL/PF 2% SDV 5ML VIAL ONE (08:52)
[2021-08-12] MEDS ORDERED: DEXAMETHASONE SOD PHOSPHATE 4 MG/1 ML VIAL ONE (08:52)
[2021-08-12] MEDS ORDERED: PROPOFOL 20 ML ONE (08:53)
[2021-08-12] MEDS ORDERED: MIDAZOLAM HCL 2 MG/2 ML SINGLE DOSE VIAL ONE (08:53)
[2021-08-12] MEDS ORDERED: ONDANSETRON 4 MG/2 ML VIAL IVPUSH PRN (09:11)
[2021-08-12] MEDS ORDERED: oxyCODONE HCL 5 MG TABLET PO PRN ×2 (09:11)
[2021-08-12] MEDS ORDERED: LACTATED RINGERS SOLUTION 1,000 ML IV SCH (09:15)
[2021-08-12] MEDS ORDERED: KETOROLAC TROMETHAMINE 30 MG/1 ML VIAL ONE (09:26)
[2021-08-12 10:52] VITALS: PULSE 55; TEMP 97.4
[2021-08-12 11:20] VITALS: BP 128/85
== END 2021-08-12 12:00 | disposition home or self-care (01) ==
LOC: FASU 07:39
PROVIDERS: ATTEND Orthopaedic Surgery Hand Surgery
PROC: 01N54ZZ Release Median Nerve, Percutaneous Endoscopic Approach (ICD-10-PCS; principal; 2021-08-12 09:52)
DX: G56.01 Carpal tunnel syndrome, right upper limb (principal)
CPT/HCPCS: 94760

== ENCOUNTER 2023-10-29 07:31 | Emergency (ER) | payer OTHER ==
[2023-10-29 07:50] VITALS: BP 147/80; PULSE 57; RESP 16; TEMP 98.1; BMI 27.7
[2023-10-29] MEDS ORDERED: TETRACAINE 0.5% OPHTH SOLN 2 ML BOTTLE ONE (08:29)
[2023-10-29] MEDS ORDERED: FLUORESCEIN NA 1 EA STRIP ONE (08:29)
[2023-10-29] MEDS: TETRACAINE 0.5% HCL 0.6ML DROPPER.BOTTLE OU ONE (08:39)
[2023-10-29] MEDS: FLUORESCEIN NA 1 EA STRIP OU ONE (08:39)
[2023-10-29 09:03] LABS: BASO % 0.7 % (0-2.0); EOS % 0.9 % (0-4.5); HEMATOCRIT 41.9 % (35.4-49); HEMOGLOBIN 14.3 GM/dL (11.7-16.9); MCH 30.5 pg (25.7-33.7); MCHC 34.1 g/dl (32.0-35.9); MEAN CELL VOLUME 89.5 fl (80-96); MEAN PLT VOLUME 8.1 fl (7.5-11.1); MONO % 12.5 % (3.8-10.2); NEUT % 49.9 % (42.8-82.8); PLATELET COUNT 181 10^3/uL (134-434); RBC 4.69 M/mm3 (4.00-5.60); RDW 14.5 % (11.9-15.9); WHITE BLOOD COUNT 2.8 K/mm3 (4.0-10.0)
[2023-10-29 09:23] LABS: CHLORIDE 109 mmol/L (98-107); POTASSIUM 4.3 mmol/L (3.5-5.1); SODIUM 141 mmol/L (136-145)
[2023-10-29 09:25] LABS: CALCIUM 8.9 mg/dL (8.5-10.1)
[2023-10-29 09:26] LABS: ALBUMIN 3.9 g/dl (3.4-5.0); ANION GAP 5 mmol/L (4-13); BLOOD UREA NITROGEN 17.6 mg/dL (7-18); CO2 27 mmol/L (21-32); GLUCOSE,RANDOM 95 mg/dL (74-106)
[2023-10-29 09:28] LABS: CREATININE 1.2 mg/dL (0.55-1.3)
[2023-10-29 09:29] LABS: SGOT/AST 25 U/L (15-37); SGPT/ALT 22 U/L (13-61)
[2023-10-29 09:30] LABS: BILIRUBIN,TOTAL 0.4 mg/dL (0.2-1); TOT PROT 7.1 g/dl (6.4-8.2)
[2023-10-29 09:31] LABS: ALK PHOS 55 U/L (45-117)
[2023-10-29 09:48] LABS: ERYTHROCYTE SEDIMENTATION RATE 5 mm/hr (0-20)
[2023-10-29] MEDS ORDERED: AMOX TR/POT CLAV 875MG/125MG TABLETS (FP) ONE (15:59)
[2023-10-29] MEDS ORDERED: SULFAMETHOXAZOLE/TRIMETHOPRIM 800MG/160MG D.S. TABLET ONE (15:59)
[2023-10-29] MEDS: AMOXICILLIN 500 MG CAPSULE (FP) PO ONE (16:20)
[2023-10-29] MEDS: MOXIFLOXACIN HCL 0.5% OPHTHALMIC 3 ML BOTTLE OS ONE (16:20)
[2023-10-29] MEDS: SULFAMETHOXAZOLE/TRIMETHOPRIM 800MG/160MG D.S. TABLET PO ONE (16:20)
== END 2023-10-29 16:15 | disposition home or self-care (01) ==
LOC: JER 07:31
DX: H53.8 Other visual disturbances (principal); L03.213 Periorbital cellulitis
CPT/HCPCS: 36415; 70481-TC; 80053; 82962; 85025; 85651; 86140; 99283-25; Q9967

== ENCOUNTER 2023-12-11 07:27 | Emergency (ER) | payer OTHER ==
[2023-12-11 07:52] VITALS: BP 118/71; PULSE 56; RESP 18; TEMP 98.8; BMI 27.7
== END 2023-12-11 10:26 | disposition home or self-care (01) ==
LOC: JER 07:27 → JERFT 07:27
DX: H53.8 Other visual disturbances (principal)
CPT/HCPCS: 99283-25

== ENCOUNTER 2024-06-28 10:23 | Emergency (ER) | payer OTHER ==
[2024-06-28 10:34] VITALS: TEMP 98.5; BMI 25.8
[2024-06-28] MEDS: MECLIZINE HCL 25 MG TABLET (FP) PO ONE (10:55)
[2024-06-28] MEDS ORDERED: MECLIZINE HCL 25 MG TABLET (FP) ONE (11:22)
[2024-06-28 11:52] LABS: HEMATOCRIT 44.4 % (40.1-51.0); HEMOGLOBIN 14.1 g/dL (13.7-17.5); MCHC 31.8 g/dl (32.3-36.5); MEAN CELL VOLUME 91.5 fl (79.0-92.2); PLATELET COUNT 163 x10^3/uL (163-337); RDW 14.3 % (12.2-16.6)
[2024-06-28 12:07] LABS: POTASSIUM 4.2 mmol/L (3.5-5.1)
[2024-06-28 12:08] LABS: CALCIUM 9.1 mg/dL (8.5-10.1)
[2024-06-28 12:09] LABS: ALBUMIN 3.8 g/dl (3.4-5.0); BLOOD UREA NITROGEN 12.4 mg/dL (7-18)
[2024-06-28 12:12] LABS: CREATININE 1.2 mg/dL (0.55-1.3)
[2024-06-28 12:14] LABS: BILIRUBIN,TOTAL 0.7 mg/dL (0.2-1)
[2024-06-28] MEDS: SODIUM CHLORIDE 0.9% 500 ML INFUS.BAG IV ONE (12:20)
[2024-06-28 14:07] VITALS: BP 156/86; PULSE 52; RESP 18
[2024-06-28 18:39] LABS: HCV DIAGNOSTIC IN-HOUSE W/RFLX NON-REACTIVE (NONREACTIVE); HIV INTERPRETATION NEGATIVE (NEGATIVE)
== END 2024-06-28 14:17 | disposition home or self-care (01) ==
LOC: JER 10:23
DX: R42 Dizziness and giddiness (principal); R00.1 Bradycardia, unspecified
CPT/HCPCS: 36415; 80053; 84484; 85027; 86803; 87389; 93005; 93010; 99284-25